=== PATIENT | female | born 1975 | race Caucasian/White ===

== ENCOUNTER 2023-03-13 12:35 | Observation (INO) | payer OTHER, SELFPAY ==
[2023-03-13 12:36] VITALS: BP 153/114; PULSE 113; RESP 16; TEMP 36.2; O2SAT 98; BMI 34.2
--- NOTE | 2023-03-13 13:46 | EDS_ITS ---
HPI HPI - GI History of Present Illness Chief Complaint: Abd Pain Detail of Chief Complaint: Upper abdominal pain since last night Informant: patient and spouse/S.O. Abdominal Pain/Flank Pain Onset: Yesterday Context: Sudden Onset Timing: Continuous Quality: Cramping Location: Epigastric and RUQ Current Severity: Mild Maximum Severity: Severe Worsened by: - (Nothing specific) Relieved by: - (Better when supine) Nausea/Vomiting/Emesis GI Symptom: Positive for Nausea and Vomiting (X2) Onset: Today Severity: Mild Diarrhea/Melena/Hematochezia GI Symptom: Negative for Diarrhea, Melena or Hematochezia Associated Symptoms Associated Symptoms: Negative for Dysuria, Frequency, Hematuria or Urgency Narrative Narrative: Patient is a 47-year-old woman with history of hypertension who presents with upper abdominal pain that she localizes to the right upper quadrant epigastric area. This occurred after having macaroni cheese last evening. Has not eaten since. She is vomited twice. There was no blood or coffee grounds noted. She had a bowel movement recently. She is still passing gas. She denies history of abdominal surgery or prior obstruction. She denies intolerance to greasy or fried foods. She denies fever, chills night sweats. She denies respiratory or cardiac symptoms. She denies urologic symptoms. Prior similar symptoms: No Recent Illness/Hospitalization: No PFSH PFSH Home Medications hydrochlorothiazide 12.5 mg tablet 12.5 mg PO DAILY 03/13/23 [History Last Taken Unknown] lisinopril 20 mg tablet 20 mg PO DAILY 03/13/23 [History Last Taken Unknown] Allergy/AdvReac Type Severity Reaction Status Date / Time No Known Allergies Allergy Verified 03/13/23 12:38 Surgical History no surgical history no surgical history Social History (Updated 03/13/23 @ 13:[address] Nima Carpio MD) household members: spouse Smoking Status: Never smoker substance use type: does not use ROS ROS ED Constitutional Constitutional ED: Denies chills, fever(s), subjective, sweats or weight loss ENT ENT ED: Denies ear pain, rhinorrhea or sore throat Cardiovascular Cardiovascular: Denies chest pain, palpitations or racing heartbeat Respiratory/Chest Respiratory/Chest: Denies cough, dyspnea or dyspnea on exertion Gastrointestinal Gastrointestinal: Reports abdominal pain, nausea and vomiting; Denies constipation, diarrhea or melena Genitourinary Genitourinary ED: Denies dysuria, hematuria or urinary frequency Musculoskeletal Musculoskeletal: Reports back pain; Denies arthralgias, myalgias or neck pain Integumentary Denies abscess or rash Neurologic Neurologic: Denies headache(s), paresthesias or weakness Psychiatric Psychiatric: Denies anxiety or depression Endocrine Endocrinology: Denies polydipsia, polyphagia or polyuria Hematologic/Lymphatic Hematologic/Lymphatic: Denies easy bleeding or easy bruising EXAM Physical Exam Const Vital Signs: 03/13/23 12:36 Temperature 97.2 F L Temperature Source Temporal Pulse Rate 113 H Respiratory Rate 16 Blood Pressure 153/114 H Blood Pressure Mean 127 Pulse Ox 98 Oxygen Delivery Method Room Air Positive well nourished, well developed and obese Constitutional Narrative: Patient does appear well. General Appearance ED: well developed; Negative for NAD or pallor Nutritional Appearance: obese HEENT Reports TM's clear and dry mucous membranes normocephalic and atraumatic Tympanic Membrane ED: Yes TM's clear Mouth ED: Yes dry mucous membranes Mouth: dry mucous membranes Eyes PERRL and EOMs intact bilaterally General Eye ED: Negative for pale conjunctiva or scleral icterus Neck no lymphadenopathy, supple and no JVD Resp normal respiratory effort and clear to auscultation bilaterally Cardio regular rhythm, S1 normal heart sound, S2 normal heart sound and no murmurs Rate: tachycardic GI non-distended and no masses; Negative for non-tender Auscultation: hypoactive bowel sounds Palpation: soft and tender RUQ and Willard's sign; Negative for rigid, hepatomegaly, splenomegaly, hernia, mass, pulsatile mass or rebound tenderness present Back/Spine no CVA tenderness Extremity full ROM Neuro CN's II-XII intact bilaterally and moves all extremities Psych Mood & Affect: depressed Skin no wounds General Skin Exam: Negative for jaundice or pallor Lesions: no lesions Rashes: no rashes MDM MDM MDM Narrative Medical decision making narrative: Patient presents with upper abdominal pain. Consideration is peptic Elcys, reflux, biliary disease or specifically cholelithiasis, cholecystitis. Will obtain appropriate blood work. Patient was medicated with Zofran for her nausea and vomiting and morphine for her pain. History & Record Review Additional record(s) reviewed:: No prior records Lab Data Lab results narrative: White count is elevated with slight shift. Urine is negative. Since patient has right upper quadrant pain rating to her back with elevated white count has not eaten since last evening will obtain ultrasound of the gallbladder. Labs: Laboratory Results - last 24 hr 03/13/23 03/13/23 03/13/23 14:00 14:08 14:08 WBC 13.7 H RBC 4.77 Hgb 14.6 Hct 40.7 MCV 85.3 MCH 30.6 MCHC 35.9 RDW Std Deviation 37.8 RDW Coeff of Kevin 12.3 Plt Count 269 MPV 9.1 Immature Gran % (Auto) 0.400 Neut % (Auto) 79.0 H Lymph % (Auto) 12.6 L [place] % (Auto) 7.5 Eos % (Auto) 0.2 Baso % (Auto) 0.3 Absolute Neuts (auto) 10.8 H Absolute Lymphs (auto) 1.72 Nucleated RBC % 0 Sodium 134 L 135 L Potassium 3.3 L Chloride Carbon Dioxide Anion Gap BUN Creatinine Estim Creat Clear Calc Est GFR (MDRD) Af Amer Est GFR (MDRD) Non-Af BUN/Creatinine Ratio Glucose Calcium Total Bilirubin AST ALT Alkaline Phosphatase Total Protein Albumin Globulin Albumin/Globulin Ratio Lipase Serum , Qual Urine Color Yellow Urine Clarity Clear Urine pH 7.0 Ur Specific Watkins 1.010 Urine Protein Negative Urine Glucose (UA) Normal Urine Ketones 50 H Urine Occult Blood 25 H Urine Nitrite Negative Urine Bilirubin Negative Urine Urobilinogen Normal Ur Leukocyte Esterase 25 H Urine RBC 0-5 SEEN Urine WBC 0-5 SEEN Ur Squamous Epith Cells 0-5 SEEN Urine Bacteria 0 SEEN Urine Mucus 0 SEEN 03/13/23 03/13/23 03/13/23 14:08 14:08 14:08 WBC RBC Hgb Hct MCV MCH MCHC RDW Std Deviation RDW Coeff of Kevin Plt Count MPV Immature Gran % (Auto) Neut % (Auto) Lymph % (Auto) [place] % (Auto) Eos % (Auto) Baso % (Auto) Absolute Neuts (auto) Absolute Lymphs (auto) Nucleated RBC % Sodium Potassium 3.4 L Chloride 101 101 Carbon Dioxide 25.0 26.0 Anion Gap 8 BUN Creatinine Estim Creat Clear Calc Est GFR (MDRD) Af Amer Est GFR (MDRD) Non-Af BUN/Creatinine Ratio Glucose Calcium Total Bilirubin AST ALT Alkaline Phosphatase Total Protein Albumin Globulin Albumin/Globulin Ratio Lipase Serum , Qual Urine Color Urine Clarity Urine pH Ur Specific Watkins Urine Protein Urine Glucose (UA) Urine Ketones Urine Occult Blood Urine Nitrite Urine Bilirubin Urine Urobilinogen Ur Leukocyte Esterase Urine RBC Urine WBC Ur Squamous Epith Cells Urine Bacteria Urine Mucus 03/13/23 03/13/23 03/13/23 14:08 14:08 14:08 WBC RBC Hgb Hct MCV MCH MCHC RDW Std Deviation RDW Coeff of Kevin Plt Count MPV Immature Gran % (Auto) Neut % (Auto) Lymph % (Auto) [place] % (Auto) Eos % (Auto) Baso % (Auto) Absolute Neuts (auto) Absolute Lymphs (auto) Nucleated RBC % Sodium Potassium Chloride Carbon Dioxide Anion Gap 8 BUN 9 9 Creatinine 0.76 0.71 Estim Creat Clear Calc 84.11 Est GFR (MDRD) Af Amer Est GFR (MDRD) Non-Af BUN/Creatinine Ratio Glucose Calcium Total Bilirubin AST ALT Alkaline Phosphatase Total Protein Albumin Globulin Albumin/Globulin Ratio Lipase Serum , Qual Urine Color Urine Clarity Urine pH Ur Specific Watkins Urine Protein Urine Glucose (UA) Urine Ketones Urine Occult Blood Urine Nitrite Urine Bilirubin Urine Urobilinogen Ur Leukocyte Esterase Urine RBC Urine WBC Ur Squamous Epith Cells Urine Bacteria Urine Mucus 03/13/23 03/13/23 03/13/23 14:08 14:08 14:08 WBC RBC Hgb Hct MCV MCH MCHC RDW Std Deviation RDW Coeff of Kevin Plt Count MPV Immature Gran % (Auto) Neut % (Auto) Lymph % (Auto) [place] % (Auto) Eos % (Auto) Baso % (Auto) Absolute Neuts (auto) Absolute Lymphs (auto) Nucleated RBC % Sodium Potassium Chloride Carbon Dioxide Anion Gap BUN Creatinine Estim Creat Clear Calc 90.04 Est GFR (MDRD) Af Amer 105 114 Est GFR (MDRD) Non-Af 87 95 BUN/Creatinine Ratio 11.8 Glucose Calcium Total Bilirubin AST ALT Alkaline Phosphatase Total Protein Albumin Globulin Albumin/Globulin Ratio Lipase Serum , Qual Urine Color Urine Clarity Urine pH Ur Specific Watkins Urine Protein Urine Glucose (UA) Urine Ketones Urine Occult Blood Urine Nitrite Urine Bilirubin Urine Urobilinogen Ur Leukocyte Esterase Urine RBC Urine WBC Ur Squamous Epith Cells Urine Bacteria Urine Mucus 03/13/23 03/13/23 03/13/23 14:08 14:08 14:08 WBC RBC Hgb Hct MCV MCH MCHC RDW Std Deviation RDW Coeff of Kevin Plt Count MPV Immature Gran % (Auto) Neut % (Auto) Lymph % (Auto) [place] % (Auto) Eos % (Auto) Baso % (Auto) Absolute Neuts (auto) Absolute Lymphs (auto) Nucleated RBC % Sodium Potassium Chloride Carbon Dioxide Anion Gap BUN Creatinine Estim Creat Clear Calc Est GFR (MDRD) Af Amer Est GFR (MDRD) Non-Af BUN/Creatinine Ratio 12.7 Glucose 102 100 Calcium 9.3 9.2 Total Bilirubin 0.60 AST ALT Alkaline Phosphatase Total Protein Albumin Globulin Albumin/Globulin Ratio Lipase Serum , Qual Urine Color Urine Clarity Urine pH Ur Specific [place] Urine Protein Urine Glucose (UA) Urine Ketones Urine Occult Blood Urine Nitrite Urine Bilirubin Urine Urobilinogen Ur Leukocyte Esterase Urine RBC Urine WBC Ur Squamous Epith Cells Urine Bacteria Urine Mucus 03/13/23 03/13/23 03/13/23 14:08 14:08 14:08 WBC RBC Hgb Hct MCV MCH MCHC RDW Std Deviation RDW Coeff of Kevin Plt Count MPV Immature Gran % (Auto) Neut % (Auto) Lymph % (Auto) [place] % (Auto) Eos % (Auto) Baso % (Auto) Absolute Neuts (auto) Absolute Lymphs (auto) Nucleated RBC % Sodium Potassium Chloride Carbon Dioxide Anion Gap BUN Creatinine Estim Creat Clear Calc Est GFR (MDRD) Af Amer Est GFR (MDRD) Non-Af BUN/Creatinine Ratio Glucose Calcium Total Bilirubin 0.70 AST 16 16 ALT 21 20 Alkaline Phosphatase 65 Total Protein Albumin Globulin Albumin/Globulin Ratio Lipase Serum , Qual Urine Color Urine Clarity Urine pH Ur Specific [place] Urine Protein Urine Glucose (UA) Urine Ketones Urine Occult Blood Urine Nitrite Urine Bilirubin Urine Urobilinogen Ur Leukocyte Esterase Urine RBC Urine WBC Ur Squamous Epith Cells Urine Bacteria Urine Mucus 03/13/23 03/13/23 03/13/23 14:08 14:08 14:08 WBC RBC Hgb Hct MCV MCH MCHC RDW Std Deviation RDW Coeff of Kevin Plt Count MPV Immature Gran % (Auto) Neut % (Auto) Lymph % (Auto) [place] % (Auto) Eos % (Auto) Baso % (Auto) Absolute Neuts (auto) Absolute Lymphs (auto) Nucleated RBC % Sodium Potassium Chloride Carbon Dioxide Anion Gap BUN Creatinine Estim Creat Clear Calc Est GFR (MDRD) Af Amer Est GFR (MDRD) Non-Af BUN/Creatinine Ratio Glucose Calcium Total Bilirubin AST ALT Alkaline Phosphatase 69 Total Protein 7.6 7.6 Albumin 3.7 3.8 Globulin 3.9 Albumin/Globulin Ratio Lipase Serum , Qual Urine Color Urine Clarity Urine pH Ur Specific [place] Urine Protein Urine Glucose (UA) Urine Ketones Urine Occult Blood Urine Nitrite Urine Bilirubin Urine Urobilinogen Ur Leukocyte Esterase Urine RBC Urine WBC Ur Squamous Epith Cells Urine Bacteria Urine Mucus 03/13/23 03/13/23 14:08 14:08 WBC RBC Hgb Hct MCV MCH MCHC RDW Std Deviation RDW Coeff of Kevin Plt Count MPV Immature Gran % (Auto) Neut % (Auto) Lymph % (Auto) [place] % (Auto) Eos % (Auto) Baso % (Auto) Absolute Neuts (auto) Absolute Lymphs (auto) Nucleated RBC % Sodium Potassium Chloride Carbon Dioxide Anion Gap BUN Creatinine Estim Creat Clear Calc Est GFR (MDRD) Af Amer Est GFR (MDRD) Non-Af BUN/Creatinine Ratio Glucose Calcium Total Bilirubin AST ALT Alkaline Phosphatase Total Protein Albumin Globulin 3.8 Albumin/Globulin Ratio 0.9 1.0 Lipase 37 Serum , Qual NEGATIVE Urine Color Urine Clarity Urine pH Ur Specific [place] Urine Protein Urine Glucose (UA) Urine Ketones Urine Occult Blood Urine Nitrite Urine Bilirubin Urine Urobilinogen Ur Leukocyte Esterase Urine RBC Urine WBC Ur Squamous Epith Cells Urine Bacteria Urine Mucus Radiography Diagnostic Testing: Clinical Impression(s) from Imaging Studies Gallbladder Ultrasound 03/13/23 14:31 IMPRESSION: Cholelithiasis associated with mild gallbladder wall thickening, minimal pericholecystic fluid and a positive sonographic Willard''s sign may reflect mild cholecystitis. Right sided hydronephrosis. Fatty infiltration of the liver. Electronically Signed: Nadege Saravia MD at 15:25 EDT , Abdomen/Pelvis CT 03/13/23 16:10 IMPRESSION: 1. Nonobstructing bilateral nephrolithiasis with no evidence of hydronephrosis or ureteral stone. Bilateral renal pelvises demonstrate mild prominence and likely normal variant. 2. Gallbladder wall irregularity concerning for wall thickening and surrounding inflammation with noted cholelithiasis concerning for underlying cholecystitis. Electronically Signed: Raúl Velázquez DO at 16:41 EDT , Management Discussion w/another healthcare provider: [employer] Treatment and Re-Evaluation :: Patient is also noted to have right-sided hydronephrosis. Dr. Glynn requested a CT of the abdomen pelvis without contrast to evaluate this. The surgeon on-call Dr. Glynn was paged since patient has acute cholecystitis with elevated white count. Will give dose of Zosyn. The gallbladder is inflamed on the CAT scan. There is bilateral renal calculi. I did not appreciate a right ureteral calculi to explain patient's hydronephrosis. Dr. Glynn was paged. Discharge Plan Triage Chief Complaint: Abd Pain ED Provider: Nima Carpio Dx/Rx/DC Orders Clinical Impression: Cholelithiasis and acute cholecystitis without obstruction, Sinus tachycardia by electrocardiogram, Hydronephrosis of right kidney, Hypertension, Bilateral kidney stones Prescriptions: No Action lisinopril 20 mg tablet 20 mg PO DAILY hydrochlorothiazide 12.5 mg tablet 12.5 mg PO DAILY Primary Care Provider: Alverto Amaro Referrals: Alverto Amaro DO [Primary Care Provider] - Disposition Disposition: Acute Care [facility]
[2023-03-13] MEDS: 0.9% Normal Saline 1,000 ML 1000 ML IV (14:04)
[2023-03-13] MEDS: Ondansetron 4 MG/2 ML Vial IV (14:05)
[2023-03-13] MEDS: Morphine 4 MG/ML Syringe IV (14:05)
[2023-03-13 14:13] LABS: Bacteria 0 SEEN /hpf (None Seen); Mucous, Urine 0 SEEN /hpf (<or=2+)
[2023-03-13 14:15] LABS: Color, Urine Yellow (Yellow); Glucose, Dipstick Normal (Normal); Ketone-Dipstick 50 mg/dl (Negative); Leukocyte Esterase-Dipstick 25 /ul (Negative); Nitrite-Dipstick Negative (Negative); Occult Blood-Urine 25 /ul (Negative); Protein-Dipstick Negative (Negative); Urine Bilirubin Dipstick Negative (Negative); Urine Clarity Clear (Clear); Urine Urobilinogen Normal (Normal)
[2023-03-13 14:16] LABS: Absolute Lymphocyte Count 1.72 X10^3/uL (0.83-4.51); Absolute Neutrophil Count 10.8 X10^3/uL (2.0-7.7); Basophil# 0.04 X10^3/uL; Basophil% 0.3 % (0-1); Eosinophil# 0.03 X10^3/uL; Eosinophils% 0.2 % (0-5); Hematocrit 40.7 % (37-47); Hemoglobin 14.6 g/dL (12.0-15.0); Lymphocyte # 1.72 X10^3/ul (0.83-4.51); Lymphocyte % 12.6 % (19-41); Mean Corp Hgb Conc 35.9 g/dL (32-36); Mean Corpuscular Hgb 30.6 pg (27.0-32.0); Mean Corpuscular Volume 85.3 fL (81-99); Mean Platelet Vol. 9.1 fl (6.2-12.0); Monocyte# 1.03 X10^3/uL; Monocyte% 7.5 % (0-10); NRBC Flagged by Analyzer 0 % (0-5); Neutrophil # 10.81 X10^3/uL (2.7-7.7); Platelet Count 269 K/mm3 (150-450); RBC Distribution Width CV 12.3 % (11.6-14.6); RBC Distribution Width SD 37.8 fl (35.1-43.9); Red Blood Count 4.77 M/mm3 (4.2-5.4); White Blood Count 13.7 K/mm3 (4.4-11.0)
[2023-03-13 14:21] LABS: Red Blood Cells-Urine 0-5 SEEN /hpf (0-5); Squamous Epithelial Cells - UA 0-5 SEEN /hpf (5-10); White Blood Cells 0-5 SEEN /hpf (0-5)
--- NOTE | 2023-03-13 14:31 | US_ITS ---
INDICATION: PAIN EXAMINATION: Ultrasound US Abdomen Limited (quadrant) TECHNIQUE: Hassan scale and color doppler imaging was performed of the right upper quadrant. COMPARISON: No relevant prior comparison study available FINDINGS: LIVER: The liver is diffusely echogenic consistent with fatty infiltration. There is associated hepatomegaly. There is focal fatty sparing adjacent to the gallbladder fossa. No focal hepatic lesion. There is no free fluid. GALLBLADDER AND BILIARY TREE: There is a shadowing gallstone within the gallbladder. There is mild gallbladder wall thickening measuring up to 3.9 mm. There is trace pericholecystic fluid. The proximal common bile duct measures 5.0 mm, which is within normal limits for the patient''s age. Songraphic Willard''s sign: Positive. PANCREAS: No focal abnormality is demonstrated in the pancreas. No pancreatic ductal dilatation. RIGHT KIDNEY: The right kidney measures 12 cm in length. There is moderate right-sided hydronephrosis. US/Gallbladder IMPRESSION: Cholelithiasis associated with mild gallbladder wall thickening, minimal pericholecystic fluid and a positive sonographic Willard''s sign may reflect mild cholecystitis. Right sided hydronephrosis. Fatty infiltration of the liver. Electronically Signed: Nadege Saravia MD at 15:25 EDT ,
[2023-03-13 14:33] LABS: ALB/GLOB Ratio 0.9 RATIO (0.9-2.4); AST(SGOT) 16 U/L (15-37); Alanine Aminotransfer ALT/SGPT 21 U/L (13-56); Albumin, Serum 3.7 g/dL (3.2-5.0); Alkaline Phosphatase 65 U/L (45-117); Anion Gap 8 (5-15); BUN 9 mg/dL (7-18); BUN/Creat Ratio 11.8 RATIO (10-20); Calcium,Total 9.3 mg/dL (8.5-10.1); Chloride 101 mmol/L (98-107); Creatinine, Serum 0.76 mg/dL (0.55-1.02); EST Glomerular Filtration Rate 87 mL/min (>60); Est Glom Filt Rate - Afr Amer 105 mL/min (>60); Estimated Creatinine Clearance 84.11 ml/min; Globulin 3.9 g/dL (2.2-4.2); Glucose 102 mg/dL (74-106); Lipase 37 U/L (13-75); Potassium 3.3 mmol/L (3.5-5.1); Protein, Total 7.6 g/dL (6.4-8.2); Sodium Level 134 mmol/L (136-145)
[2023-03-13 14:35] LABS: AST(SGOT) 16 U/L (15-37); Alanine Aminotransfer ALT/SGPT 20 U/L (13-56); Albumin, Serum 3.8 g/dL (3.2-5.0); Alkaline Phosphatase 69 U/L (45-117); Anion Gap 8 (5-15); BUN 9 mg/dL (7-18); BUN/Creat Ratio 12.7 RATIO (10-20); Calcium,Total 9.2 mg/dL (8.5-10.1); Chloride 101 mmol/L (98-107); Creatinine, Serum 0.71 mg/dL (0.55-1.02); EST Glomerular Filtration Rate 95 mL/min (>60); Est Glom Filt Rate - Afr Amer 114 mL/min (>60); Estimated Creatinine Clearance 90.04 ml/min; Globulin 3.8 g/dL (2.2-4.2); Glucose 100 mg/dL (74-106); Potassium 3.4 mmol/L (3.5-5.1); Protein, Total 7.6 g/dL (6.4-8.2); Sodium Level 135 mmol/L (136-145)
[2023-03-13 14:48] LABS: Internal QC Validated? YES +Cl - CLEAR BKGD; Pregnancy, Serum, hCG Quali. NEGATIVE Negative
--- NOTE | 2023-03-13 16:10 | CT_ITS ---
STUDY: CT ABDOMEN AND PELVIS WITHOUT CONTRAST REASON FOR EXAM: Female, 47 years old. Right hydronephrosis RADIATION DOSAGE (If Supplied By Facility): CTDIvol = ( 17.11 ) mGy, DLP = ( 893.20 ) mGycm TECHNIQUE: Transaxial images were obtained from the dome of the diaphragm to the symphysis pubis without oral contrast, and without intravenous contrast. Sagittal and coronal images were reconstructed. Individualized dose optimization techniques were used for this CT. COMPARISON: 03/13/2023 abdomen ultrasound FINDINGS: The visualized lung bases are unremarkable. The visualized portions of the heart are within normal limits. Normal liver. The gallbladder demonstrates question of pericholecystic fluid/wall thickening with noted dependent layering stones with the largest measuring 1.8 cm. Normal spleen. Normal pancreas. Normal bilateral adrenal glands. Punctate nonobstructing right renal nephrolithiasis is present with no evidence of ureteral stone. There is a coarse nephrolith within the left renal parenchyma measuring 9 mm additional punctate nonobstructing nephroliths with no evidence of hydronephrosis. Left renal cortical scarring is present. Normal visualized stomach. Normal small intestine. Normal colon. The appendix is visualized and appears normal. Normal abdominal aorta. Normal inferior vena cava. Normal retroperitoneum. Normal urinary bladder. Normal abdominal wall. Normal osseous structures. CT/Abdomen/Pelvis without Cont IMPRESSION: 1. Nonobstructing bilateral nephrolithiasis with no evidence of hydronephrosis or ureteral stone. Bilateral renal pelvises demonstrate mild prominence and likely normal variant. 2. Gallbladder wall irregularity concerning for wall thickening and surrounding inflammation with noted cholelithiasis concerning for underlying cholecystitis. Electronically Signed: Raúl Velázquez DO at 16:41 EDT ,
[2023-03-13 16:57] VITALS: BP 131/94; PULSE 78; RESP 16; O2SAT 100
[2023-03-13] MEDS: HYDROmorphone 0.5 MG/0.5 ML SYRINGE IV (17:00)
[2023-03-13 17:07] VITALS: BP 120/98; PULSE 86; RESP 14; TEMP 37.1; O2SAT 98
--- NOTE | 2023-03-13 17:14 | NURSING ---
118 OBS REOBOTHAM ACUTE CHOLECYSTITIS
[2023-03-13 17:34] VITALS: BMI 33.7
[2023-03-13 17:43] VITALS: BP 108/82; PULSE 114; RESP 20; TEMP 36.9; O2SAT 95
[2023-03-13] MEDS: 0.9% Normal Saline 1,000 ML 130 ML IV (18:16)
[2023-03-13] MEDS: oxyCODONE 5 MG Tablet PO (18:44)
--- NOTE | 2023-03-13 18:54 | PCM.HP.STD ---
HPI - General General Date of Admission: 03/13/23 HPI Narrative VERONICA RAE, is a 47 F who presents due to right upper quadrant pain. Patient states it started last night after eating some mac & cheese. Patient states maybe occasionally she has had episodes similar but they were brief. Patient had ultrasound showed thickened gallbladder wall, gallstones, mild pericholecystic fluid, normal common bile duct, mild to moderate hydronephrosis on the right. Patient white blood count 13.7, LFTs within normal limits. CAT scan did not show any kidney stones. Patient's pain currently controlled medication. Patient did get Zosyn in the ER IV. Patient denies having reflux normally but does have some on occasion. PFSH Medical History Depression Kidney disease Non-smoker Home Medications hydrochlorothiazide 12.5 mg tablet 12.5 mg PO DAILY 03/13/23 [History Last Taken Unknown] lisinopril 20 mg tablet 20 mg PO DAILY 03/13/23 [History Last Taken Unknown] Allergy/AdvReac Type Severity Reaction Status Date / Time No Known Allergies Allergy Verified 03/13/23 12:38 Surgical History no surgical history Social History (Updated 03/13/23 @ 13:[address] iNma Carpio MD) household members: spouse Smoking Status: Never smoker substance use type: does not use ROS Cardiovascular Cardiovascular: Denies chest pain Respiratory/Chest Respiratory/Chest: Denies cough Gastrointestinal Gastrointestinal: Reports abdominal pain and nausea; Denies dysphagia, melena or vomiting Genitourinary Genitourinary: Denies dysuria Vital Signs Vital Signs Vital Signs: 03/13/23 12:36 03/13/23 16:57 03/13/23 17:07 Temperature 97.2 F L 98.7 F Temperature Source Temporal Oral Pulse Rate 113 H 78 86 Respiratory Rate 16 16 14 Respiratory Effort Respiratory Depth Respiratory Pattern Blood Pressure 153/114 H 131/94 H 120/98 H Blood Pressure Mean 127 106 105 Blood Pressure Source Blood Pressure Position Blood Pressure Location Pulse Ox 98 100 98 Oxygen Delivery Method Room Air Room Air 03/13/23 17:43 03/13/23 18:09 Temperature 98.4 F Temperature Source Oral Pulse Rate 114 H Respiratory Rate 20 H Respiratory Effort Normal Non-Labored Respiratory Depth Normal Respiratory Pattern Normal Blood Pressure 108/82 H Blood Pressure Mean 90 Blood Pressure Source Monitor Blood Pressure Position Semi-Fowlers Blood Pressure Location Right Arm Pulse Ox 95 Oxygen Delivery Method Room Air Room Air Weight Weight: 202 lb 6.15 oz Body Mass Index (BMI) 33.7 Physical Exam Const alert, oriented x3 and no apparent distress HEENT normocephalic and head/scalp atraumatic Resp normal respiratory effort Cardio regular rate GI soft to palpation; Negative for non-distended Palpation: tender epigastric, RUQ, Willard's sign and other (No guarding or rebound); Negative for guarding Extremity no clubbing, cyanosis or edema Neuro CN's II-XII intact bilaterally Psych mental status grossly normal Results Lab / Micro Data 03/13/23 14:08 03/13/23 14:08 Labs: Laboratory Results - last 24 hr 03/13/23 14:00: Urine Color Yellow, Urine Clarity Clear, Urine pH 7.0, Ur Specific [place] 1.010, Urine Protein Negative, Urine Glucose (UA) Normal, Urine Ketones 50 H, Urine Occult Blood 25 H, Urine Nitrite Negative, Urine Bilirubin Negative, Urine Urobilinogen Normal, Ur Leukocyte Esterase 25 H, Urine RBC 0-5 SEEN, Urine WBC 0-5 SEEN, Ur Squamous Epith Cells 0-5 SEEN, Urine Bacteria 0 SEEN, Urine Mucus 0 SEEN 03/13/23 14:08: WBC 13.7 H, RBC 4.77, Hgb 14.6, Hct 40.7, MCV 85.3, MCH 30.6, MCHC 35.9, RDW Std Deviation 37.8, RDW Coeff of Kevin 12.3, Plt Count 269, MPV 9.1, Immature Gran % (Auto) 0.400, Neut % (Auto) 79.0 H, Lymph % (Auto) 12.6 L, [place] % (Auto) 7.5, Eos % (Auto) 0.2, Baso % (Auto) 0.3, Absolute Neuts (auto) 10.8 H, Absolute Lymphs (auto) 1.72, Nucleated RBC % 0, Sodium 134 L 03/13/23 14:08: Sodium 135 L, Potassium 3.3 L 03/13/23 14:08: Potassium 3.4 L, Chloride 101 03/13/23 14:08: Chloride 101, Carbon Dioxide 25.0 03/13/23 14:08: Carbon Dioxide 26.0, Anion Gap 8 03/13/23 14:08: Anion Gap 8, BUN 9 03/13/23 14:08: BUN 9, Creatinine 0.76 03/13/23 14:08: Creatinine 0.71, Estim Creat Clear Calc 84.11 03/13/23 14:08: Estim Creat Clear Calc 90.04, Est GFR (MDRD) Af Amer 105 03/13/23 14:08: Est GFR (MDRD) Af Amer 114, Est GFR (MDRD) Non-Af 87 03/13/23 14:08: Est GFR (MDRD) Non-Af 95, BUN/Creatinine Ratio 11.8 03/13/23 14:08: BUN/Creatinine Ratio 12.7, Glucose 102 03/13/23 14:08: Glucose 100, Calcium 9.3 03/13/23 14:08: Calcium 9.2, Total Bilirubin 0.60 03/13/23 14:08: Total Bilirubin 0.70, AST 16 03/13/23 14:08: AST 16, ALT 21 03/13/23 14:08: ALT 20, Alkaline Phosphatase 65 03/13/23 14:08: Alkaline Phosphatase 69, Total Protein 7.6 03/13/23 14:08: Total Protein 7.6, Albumin 3.7 03/13/23 14:08: Albumin 3.8, Globulin 3.9 03/13/23 14:08: Globulin 3.8, Albumin/Globulin Ratio 0.9 03/13/23 14:08: Albumin/Globulin Ratio 1.0, Lipase 37, Serum , Qual NEGATIVE Radiology Impression Gallbladder Ultrasound 03/13/23 14:31 IMPRESSION: Cholelithiasis associated with mild gallbladder wall thickening, minimal pericholecystic fluid and a positive sonographic Willard''s sign may reflect mild cholecystitis. Right sided hydronephrosis. Fatty infiltration of the liver. Electronically Signed: Nadege Saravia MD at 15:25 EDT , Abdomen/Pelvis CT 03/13/23 16:10 IMPRESSION: 1. Nonobstructing bilateral nephrolithiasis with no evidence of hydronephrosis or ureteral stone. Bilateral renal pelvises demonstrate mild prominence and likely normal variant. 2. Gallbladder wall irregularity concerning for wall thickening and surrounding inflammation with noted cholelithiasis concerning for underlying cholecystitis. Electronically Signed: Raúl Velázquez DO at 16:41 EDT , Assessment & Plan Assessment/Plan (1) Cholelithiasis and acute cholecystitis without obstruction: (2) Hydronephrosis of right kidney: PLAN: Plan Personally reviewed ultrasound as well as CAT scan. No kidney stone seen on CAT scan inpatient denies any urinary symptoms-- patient's mild to moderate right hydronephrosis may be her normal. Reviewed the anatomy with the patient and discussed the procedure: laparoscopic cholecystectomy with cholangiograms, possible open. Review risks including but not limited to bleeding, infection, hernia, bile leak, retained gallstones requiring another procedure ERCP- Endoscopic Retrograde Cholangiopancreatography, injury to another organ (bile ducts, common bile duct, small bowel, etc.) and conversion to an open procedure. All questions were answered. Charlee Grider M.D. Pager: [phone] [facility] [address] [place] [address], [address] [place] [address] Office: [phone]
[2023-03-13 23:43] VITALS: BP 112/86; PULSE 108; RESP 21; TEMP 36.6; O2SAT 95
[2023-03-14] VITALS (8 sets, daily range): BP systolic 102–121; BP diastolic 69–86; PULSE 83–108; RESP 16–108; TEMP 36.2–36.9; O2SAT 89–98; BMI 29.9
[2023-03-14] MEDS: Acetaminophen 325 MG Tablet 650 MG PO ×2 (05:33→14:05)
[2023-03-14] MEDS: 0.9% Normal Saline 1,000 ML 130 ML IV ×2 (07:06→11:46)
[2023-03-14 08:16] LABS: Absolute Neutrophil Count 7.4 X10^3/uL (2.0-7.7); Basophil# 0.04 X10^3/uL; Basophil% 0.4 % (0-1); Eosinophil# 0.04 X10^3/uL; Eosinophils% 0.4 % (0-5); Hematocrit 37.6 % (37-47); Lymphocyte % 15.6 % (19-41); Mean Corp Hgb Conc 34.6 g/dL (32-36); Mean Corpuscular Hgb 30.3 pg (27.0-32.0); Mean Corpuscular Volume 87.6 fL (81-99); Mean Platelet Vol. 9.7 fl (6.2-12.0); Monocyte% 10.7 % (0-10); NRBC Flagged by Analyzer 0 % (0-5); Neutrophil # 7.43 X10^3/uL (2.7-7.7); Neutrophil % 72.5 % (47-70); Platelet Count 228 K/mm3 (150-450); RBC Distribution Width CV 12.8 % (11.6-14.6); Red Blood Count 4.29 M/mm3 (4.2-5.4); White Blood Count 10.3 K/mm3 (4.4-11.0)
--- NOTE | 2023-03-14 08:20 | GALL_PTH ---
PATIENT: VERONICA RAE LOC: U U#:[id number] AGE/SX: 47/F ROOM: [facility] RE03/13/[address]: Dr. Charlee Grider MD : 1975 BED: 1 DIS: 03/14/2023 SPEC #: [id number] RECD: 03/16/23 08:12 STATUS: ZEENAT KHOURY #: [id number] DIEGO: 03/14/23 08:[address]: Charlee Grider DEPT: SURGICAL PATHOLOGY RECD BY: Aminata Jade ENTERED: 03/16/23 11:09 SP TYPE: KELECHI TOBAR DR: Dr. Alevrto Amaro DO Tissues: Gallbladder, NOS Procedures: Surgery Specimen Level III HEADER OPERATION: Laparoscopic cholecystectomy PRE-OP DIAGNOSIS: Cholelithiasis and acute cholecystitis TISSUE SUBMITTED: Gallbladder MICROSCOPIC DIAGNOSIS Gallbladder, cholecystectomy: Acute and chronic ulcerated and hemorrhagic cholecystitis and cholelithiasis. SJ:lilia 03/17/2023 MICROSCOPIC DESCRIPTION Slides are reviewed. GROSS DESCRIPTION Received is one container labeled with the patient's name and designated gallbladder. The specimen consists of a gallbladder measuring 8.5 cm in length and up to 3.0 cm in diameter. The external surface is pink-santana, smooth and glistening for the most part. Focally it is granular, hemorrhagic and contains cautery artifact. No bile is identified. The specimen is previously, partially opened. The gallbladder contains two multifaceted, brown stones measuring 1.0 and 1.5 cm in greatest dimension. The mucosa is congested. The gallbladder wall measures up to 1.0 cm in thickness. Increased amount of subserosal fat is noted. In Home Caregiver sections from the gallbladder and the cystic duct are submitted in one cassette. / SJ:lilia 03/16/2023 TC:2 CPT: 18175
[2023-03-14 08:50] LABS: AST(SGOT) 19 U/L (15-37); Alanine Aminotransfer ALT/SGPT 20 U/L (13-56); Alkaline Phosphatase 58 U/L (45-117); Anion Gap 8 (5-15); BUN 7 mg/dL (7-18); BUN/Creat Ratio 10.7 RATIO (10-20); Bilirubin, Direct 0.24 mg/dL (0.00-0.30); Calcium,Total 8.3 mg/dL (8.5-10.1); Chloride 105 mmol/L (98-107); Creatinine, Serum 0.65 mg/dL (0.55-1.02); EST Glomerular Filtration Rate 104 mL/min (>60); Est Glom Filt Rate - Afr Amer 126 mL/min (>60); Estimated Creatinine Clearance 114.22 ml/min; Globulin 3.6 g/dL (2.2-4.2); Glucose 102 mg/dL (74-106); Potassium 3.3 mmol/L (3.5-5.1); Protein, Total 6.6 g/dL (6.4-8.2); Sodium Level 138 mmol/L (136-145)
[2023-03-14] MEDS: Lactated Ringers 1,000 ML 15 ML IV (10:00)
[2023-03-14] MEDS: Bupivacaine Mpf 0.5% 30 ML VIAL (10:23)
--- NOTE | 2023-03-14 11:32 | PCM.OPRPT ---
Report of Operation Date of Procedure: 03/14/23 Pre-Operative Diagnosis: Acute cholecystitis, cholelithiasis Post-Operative Diagnosis: Same Surgery/Procedure Performed:: Laparoscopic cholecystectomy Surgeon: Charlee Grider Type of Anesthesia: General/Supplemental Anesthesiologist: Berny Randle Special Medications: Zosyn 3.375 g IV Q8 on the floor for acute cholecystitis Specimen's removed: Gallbladder and stones Estimated Blood Loss (mL): 20 cc Description of Procedure: Indications: this is a 47 year-old female who developed abdominal pain/nausea/vomiting and on workup was found to have cholelithiasis, with a normal common bile duct. Laparoscopic cholecystectomy was elected. Description procedure: The patient was placed on operating table in supine position. A timeout was completed verifying correct patient, procedure, site, position and special equipment prior to beginning procedure. General Anesthesia was induced. The abdomen was prepped and draped in usual sterile fashion. An incision was made in the natural skin line above the umbilicus. The fascia was elevated and incised. The peritoneum was elevated and incised. Entry into the peritoneum was confirmed visually and no bowel was noted in the vicinity of the incision. Sebastian trocar was placed. The abdomen was insufflated with carbon dioxide to a pressure of 12-15 mmHg. Patient tolerated insufflation well. The laparoscope was then inserted and abdomen inspected. No injuries from initial trocar placement were noted. Additional trochars were then inserted in the following locations 5 mm trocar in the epigastrium and 2 more 5 mm trochars along the right costal margin. The abdomen was inspected no abnormalities were found. The table is placed in reverse Trendelenburg position with the right side up. The adhesions between the gallbladder and omentum were lysed sharply. The dome of the gallbladder was grasped with atraumatic grasper passed through the lateral port and retracted over the dome of the liver. Infundibulum was then grasped with atraumatic grasper through the midclavicular port and retracted to the right lower quadrant. This maneuver exposed Calot's triangle. The peritoneum overlying the gallbladder infundibulum was then incised and cystic duct and artery identified and circumferentially dissected. The cystic duct and artery were then doubly clipped and divided close to the gallbladder. The gallbladder then dissected from its peritoneal attachments by electrocautery. Hemostasis was checked and the gallbladder and contained stones were removed using the endoscopic retrieval bag through the umbilical port. The gallbladder is passed off table as specimen. The gallbladder fossa was irrigated with saline and hemostasis obtained. There is no evidence of bleeding from the gallbladder fossa or cystic artery leakage of bile from the cystic duct stump. Secondary trochars removed under direct vision. No bleeding was noted the trocar sites. The laparoscope was withdrawn and umbilical trocar removed. The abdomen was allowed to collapse. The fascia of the 12 mm trocar was closed with a [id number] 0 Vicryl suture. The skin was closed with sutures of 4-0 Monocryl and Steri-Strips. The patient was extubated. The patient tolerated procedure well and was taken to the postanesthesia care unit in stable condition. Complications none
--- NOTE | 2023-03-14 11:35 | DCINST_ITS ---
Discharge Instructions Diet Discharge Diet: Light diet - advance as tolerated Activity Discharge Activity: May Not Drive (while taking narcotic pain medications.) May shower in (days): 1 Lifting Restrictions: no lifting >20 lbs x 2 wks, no strenuous exercise for 4 wks Dressing / Incision Call your doctor if your incision/area has: Continuous Slow Oozing, Sudden Increased Bleeding, Increased Pain/ Swelling, Increased Redness, Foul Smelling Discharge and Swelling at the incision site Call your doctor if you observe: Fever of 101 or Higher Remove Dressing in: 2 days Cleanse incision/area with: Soap & Water Additional Dressing/Incision Instructions:: Steri-Strips will fall off in 7 to 10 days, if they do not fall off okay to remove after 10 days. Follow Up Care Please Follow Up With: Charlee Grider MD When: Call the office for a follow-up appointment 2 weeks; after 5 PM and on the weekends call [phone] with any concerns. Test Results: Test results from this visit will be discussed in further detail at your follow- up appointment, if applicable. Discharge Plan Admission Admit Date/Time: 03/13/23 16:44 Attending Provider: Charlee Grider Primary Care Provider: Alverto Amaro Discharge Orders/Prescriptions Prescriptions: New oxycodone-acetaminophen 5-325 mg tablet 1 tab PO Q6H PRN (Reason: pain) 3 Days Qty: 10 0RF Continued lisinopril 20 mg tablet 20 mg PO DAILY hydrochlorothiazide 12.5 mg tablet 12.5 mg PO DAILY Referrals / Follow Up: Alverto Amaro DO [Primary Care Provider] - Disposition Disposition (needs filled in before D/C Order can be placed): Home, Self Care
[2023-03-14] MEDS: oxyCODONE 5 MG Tablet PO (14:04)
[2023-03-14] MEDS: Potassium Chloride Oral Tablet 20 MEQ 40 MEQ PO (14:05)
[2023-03-14] MEDS: Lisinopril 20 MG Tablet PO (14:34)
[2023-03-14] MEDS: hydroCHLOROthiazide 12.5mg 12.5 MG PO (14:34)
== END 2023-03-14 11:36 | disposition home or self-care (01) ==
LOC: ED 16:45 → PCU 17:46 → ED 03-14 08:07 → PCU 03-14 10:36
PROVIDERS: Admitting Provider Surgery; Emergency Provider Emergency Medicine; PCP Family Medicine; Visit Provider Surgery
PROC: (CPT 47610; principal; 2023-03-14 08:00)
DX: K80.12 Calculus of gallbladder with acute and chronic cholecystitis without obstruction (principal); N13.30 Unspecified hydronephrosis; R00.0 Tachycardia, unspecified; I10 Essential (primary) hypertension; Z79.899 Other long term (current) drug therapy
CPT/HCPCS: 47562; 00790; 36415; 74176; 76705; 80048; 80053; 80076; 81001; 83690; 84703; 85025; 88304; 94668; 96361; 96365; 96366; 96375; 99221; 99252; 99284; J7030; J7120; G0378; G0463; J2405